=== PATIENT | female | born 1970 | race Caucasian/White ===

== ENCOUNTER → 2016-11-22 | Outpatient (CLI) | payer MEDICAID ==
[~2016-11-22] MED LIST: BROMFED DM COU118 ML PO; FLONASE 50 MCG16 GM; LEVOTHYROXINE0.1 MG PO; LORATADINE 10MG10 M1 PO; MEDROL 4MG. DOSE4 MG PO; MULTI VITAMINS1 TA1 PO; NORCO 325 MG-101 TAB PO; OXYBUTYNIN CHLOR5 M1 PO; SINGULAIR 10 MG10 MG PO; TRAZADONE HYDR100 MG PO; VENLAFAXINE HY150 MG PO; VENLAFAXINE HYD75 M1 PO; VISTARIL50 MG PO; VITAMIN E 400400 IU PO; XANAX 0.5MG TA0.5 MG PO
--- NOTE | 2016-11-22 13:43 | RADIOLOGY REPORT PS360 ---
[id number] VIEWS HISTORY: BILAT SHOULDER PAIN ORDERING PHYSICIAN: FEDERICA MONTERO PATIENT AGE: 46 years COMPARISON: None FINDINGS: No fracture or dislocation. No lytic or blastic change. There is normal mineralization. The joint spaces are well-preserved. No significant degenerative/arthritic changes. No erosive changes evident. IMPRESSION: Negative, no acute finding
--- NOTE | 2016-11-22 13:43 | RADIOLOGY REPORT PS360 ---
[id number] VIEWS HISTORY: Right shoulder pain ORDERING PHYSICIAN: FEDERICA MONTERO PATIENT AGE: 46 years COMPARISON: None FINDINGS: No fracture or dislocation. No lytic or blastic change. There is normal mineralization. There is downsloping of the acromion with subacromial stenosis which may result in impingement upon the rotator cuff. No significant arthritic changes evident. IMPRESSION: Subacromial stenosis which may result in impingement upon the rotator cuff may be better evaluated with MRI if clinically warranted.
--- NOTE | 2016-11-22 13:46 | RADIOLOGY REPORT PS360 ---
EXAM: CERVICAL SPINE 4 OR 5 VIEWS HISTORY: NECK PAIN ORDERING PHYSICIAN: FEDERICA MONTERO PATIENT AGE: 46 years COMPARISON: CT scan of 11/06/2015 FINDINGS: Normal alignment. No fracture or dislocation. No lytic or blastic change. 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 Oblique images suggests foraminal narrowing bilaterally at C3-C4. Severe slightly worse on the right. IMPRESSION: 1. 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
== END ==
LOC: RAD 12:46
DX: M54.2 Cervicalgia (principal); M25.511 Pain in right shoulder; M25.512 Pain in left shoulder

== ENCOUNTER 2016-11-27 09:59 | Emergency (ER) | payer MEDICAID ==
[~2016-11-27] VITALS: Ht 170.2 cm; Wt 90.7 kg
[~2016-11-27 09:59] MED LIST changes: -BROMFED DM COU118 ML PO; -FLONASE 50 MCG16 GM
--- NOTE | 2016-11-27 10:36 | Urgent Treatment Center Report ---
History of Present Issue Date/Time Seen by Provider 11/27/16 1036 Visit Reason Pt arrived:Walked Presenting Problem:PT C/O SORE THROAT, COUGH, HEAD CONGESTION, BILATERAL EAR PAIN X4 DAYS Location if Accident: Onset of symptoms date/time:/ or onset unknown for:MEDICAL HX UNKNOWN Have you (or family members/close friends) recently traveled outside the [place]? N If Yes, where/when: Have you had exposure to infectious disease within the past month? TB? Other? Specify: c/o head congestion, rhinorrhea, nasal congestion, sore throat, cough, ears "muffled" x 3-4 days. No improvement w/ unknown OTC advil cold, sinus, flu "something like that". No known sick contacts. Denies SOA, wheezing. Most bothersome is ear pressure, ears muffled, head pressure. Cough and sore throat worse at night. Feels PND. Denies pain "all just fullness and pressure". Source patient Exam Limitations no limitations ALLERGIES Coded Allergies: NSAIDS (Non-Steroidal Anti-Inflamma (Mild, 08/06/16) baclofen (Mild, 08/06/16) carbamazepine (From TEGRETOL) (Mild, 08/06/16) gabapentin (Mild, 08/06/16) iodine (Mild, 08/06/16) lamotrigine (From LAMICTAL) (Mild, 08/06/16) meloxicam (Mild, 08/06/16) naproxen (Mild, 08/06/16) pregabalin (From LYRICA) (Mild, 08/06/16) Home Medications Active Scripts Hydroxyzine Pamoate (Vistaril) 50 MG PO Q8HP PRN itching #60 CAP Prov: 07/31/16 Reported Medications VENLAFAXINE HCL (Venlafaxine HCl ER) 75 MG PO #30 VENLAFAXINE HCL (Venlafaxine HCl ER) 150 MG PO #30 Oxybutynin Chloride (Oxybutynin Chloride ER) 5 MG PO #30 Trazodone Hcl (Trazodone HCl) 100 MG PO QHSP PRN SLEEP AID #30 LEVOTHYROXINE SOD (Synthroid) 0.1 MG PO DAILY Vitamin E (Vitamin E 400 UNITS) 400 IUNITS PO DAILY Loratadine (Loratadine 10MG Tablet) 10 MG PO DAILY Montelukast Sodium (Singulair 10MG) 10 MG PO DAILY MULTIVITAMIN (One Daily Multivitamin) 1 TAB PO DAILY History Medical History General CAD? No Angina: No AR: No Hypertension? No Hyperlipidemia? Yes CHF? No DVT? No PE? No COPD? No Asthma? Yes Anemia? Yes GERD? No Gastric ulcers? No GI Bleed? No Hernia? No Thyroid Problems? Yes Hypothyroidism? Yes CVA? No Seizures? No Diabetes? No Renal Insuffiency? No UTI? Yes Stones? No BPH? No GB Disease: No Nephritic Syndrome? No Asplenia? No Hepatitis? No Sickle Cell Disease? No Arthritis? Yes Migraines? No Cataracts? No Glaucoma? No MRSA? No HIV? No TB? No Anxiety? No Depression? No Cancer? No More? No Immunization HX DT/Tetanus 1-4 Years Ago Surgical Hx Previous Surgery?Y D & C Hysterectomy-Partial Social History Smoking Hx Smoker: Current Every Day Smoker Tobacco: Yes Type Cigarettes Packs/day < 1 Pack Alcohol Alcohol: No Review of Systems All Other Systems Reviewed and Negative Constitutional denies chills, denies fever, denies malaise Eyes denies drainage ENT see HPI. denies: ear discharge, throat swelling. Respiratory denies shortness of breath, denies wheezing Cardiovascular denies chest pain Gastrointestinal denies no symptoms reported Musculoskeletal denies other (no aches) Skin denies rash Psychiatric/Neurological denies headache Physical Exam Vital Signs Vital Signs Date Time Temp Pulse Resp B/P Pulse O2 O2 Flow FiO2 Ox Delivery Rate 11/27 1005 97.2 95 16 118/76 95 General Appearance normal appearance, no apparent distress Eye Exam - bilateral eye normal exam Ear, Nose, Throat normal ENT inspection (x/ mild nasal congestion) Neck non-tender, supple Respiratory Status Yes: non productive cough. No: respiratory distress, pain on inspiration, pain on expiration. Lung Sounds anterior: lungs clear. posterior: lungs clear. bilateral: lungs clear. Cardiovascular regular rate/rhythm, no murmur Neurologic alert Skin normal color, warm/dry Lymphatic no adenopathy Medical Decision Making LABS/Meds/Orders Pt receiving controlled substance in ED? No Results/Orders Laboratory Tests 11/27/16 1008: Influenza Type A Ag NOT DETECTED, Influenza Type B Ag NOT DETECTED, Group A Strep Screen NOT DETECTED Orders Procedure Date/time Status [facility] STREP SCREEN 11/[address] [facility] FLU A,B 11/27 1008 Complete Departure Departure Time of Disposition 1040 Disposition DC Home or Self Care(routine) Clinical Impression Primary Impression: Upper respiratory virus Condition STABLE Referrals FEDERICA MONTERO (Family) Follow up immediately for new or worsening symptoms OR no noticeable improvement over the next 48-72 hours. Patient Instructions DI for Viral Upper Respiratory Infection -- Adult Additional Instructions Lots of rest Increase fluids, water, gatorade, powerade Alternate tylenol and/or ibuprofen for fever/aches/pain warm salt water gargles sleep elevated humidifier/vaporizer flonase 2 sprays each nostril daily but may take 2-3 days to notice improvement with it. Bromfed may cause drowsiness. know how it effects you before driving or caring for small children Could try sudafed. You have to ASK for this at the pharmacy but prescription not necessary. It may take 2-3 days to notice much improvement so be sure to use conservative measures as discussed for symptoms. Discharge Counseling Counseled pt/family regarding diagnosis, test results, medications/RX, home care, follow up needs Prescriptions Current Visit Scripts Fluticasone Propionate (Flonase 50 Mcg Nasal [place]) 2 SPRAY NA DAILY #1 BOT D-METHORPHAN HB/P-EPD HCL/BPM (Bromfed Dm Cough Syrup) 10 ML PO QIDP PRN cough #240 ML at 1048
[2016-11-27 10:42] LABS: UTC STREP SCREEN NOT DETECTED (NOTDETECTED)
[2016-11-27] MEDS ORDERED: FLONASE 50 MCG16 GM (10:42)
[2016-11-27] MEDS ORDERED: BROMFED DM COU118 ML PO (10:42)
[2016-11-27 10:46] VITALS: BP 118/76
== END 2016-11-27 10:48 | disposition home or self-care (01) ==
LOC: UTC 09:59
PROVIDERS: Nurse Practitioner Family
DX: J06.9 Acute upper respiratory infection, unspecified (principal)